=== PATIENT | female | born 1985 | race Caucasian/White ===

== ENCOUNTER → 2019-02-08 | Outpatient (CLI) | payer OTHER ==
--- NOTE | 2019-02-08 13:23 | RAD ---
EXAM: Lumbar spine, 5 views; cervical spine, 5 views. HISTORY: Pain. COMPARISON: None. FINDINGS: Lumbar spine: 5 views of the lumbar spine are obtained. There is mild retrolisthesis of L4 and L5 and L5 on S1. The vertebral bodies are normal in height and the disc spaces are preserved. There are metallic clips overlying the midline pelvis. Cervical spine: 5 views of cervical spine are obtained. There is no listhesis. There is no fracture. The disc spaces are preserved. There is no significant stenosis. IMPRESSION: No acute osseous finding. Electronically signed by: Melinda Barbosa MD (02/08/2019 1:20 PM) [place] [id number]
== END | disposition home or self-care (01) ==
LOC: PMG 12:38
PROVIDERS: ATTEND Physician Assistant
DX: M54.5 Low back pain (principal); M54.2 Cervicalgia
CPT/HCPCS: 72050; 72110

== ENCOUNTER → 2019-03-03 | Outpatient (CLI) | payer OTHER, BC ==
--- NOTE | 2019-03-03 12:05 | RAD ---
CT HEAD WO CONTRAST Date: 03/03/2019 12:00 AM Clinical Indication: Headache Comparison: None. Technique: 5 mm axial tomographic images were obtained of the head without contrast. These were viewed on brain and bone windows. One or more of the following dose reduction techniques were utilized: Automated exposure control (AEC), Adjustment of mA and/or kV according to patient size, Use of iterative reconstruction technique such as ASiR, CT scan done according to ALARA and image gently/image wisely Findings: The brain parenchyma is normal in attenuation. No intra- or extra-axial mass or fluid collection. No acute hemorrhage. The ventricles are normal in size, shape, and morphology. The croft-white matter junction is normal. The subarachnoid cisterns are patent. The visualized paranasal sinuses are normal. The visualized portions of the orbits and globes are normal. The mastoid air cells are clear. 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 Impression: No acute intracranial process. Electronically signed by: Umair Riggs MD (03/03/2019 12:02 PM) [id number]
== END | disposition home or self-care (01) ==
LOC: CT 10:51
PROVIDERS: ATTEND Physician Assistant
DX: R51 Headache (principal)
CPT/HCPCS: 70450